=== PATIENT | female | born 1995 | race African-American/Black ===

== ENCOUNTER 2023-04-05 04:27 | Inpatient (IN) | payer SELFPAY ==
[2023-04-05] VITALS (7 sets, daily range): BP systolic 138–155; BP diastolic 88–115; PULSE 82–89; RESP 14–18; TEMP 36.8–37.2; O2SAT 97–99
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
--- NOTE | 2023-04-05 05:27 | ED_ITS ---
HPI - Altered Mental Status 2 General: Chief Complaint: Altered Mental Status Stated Complaint: AMS Time Seen by Provider: 04/05/23 04:44 History of Present Illness: 28-year-old female presents emergency de partment after being found wandering around by her car. Patient does appear to be acutely confused. She is unable to provide any substantial and significant history regarding how she ended up in [facility] or in the emergency department. She has a very flat blunted affect. The patient did have a cell phone with her and we were able to reach a stepfather that states she has been having significant mental breaks where she becomes acutely removed from her surroundings. He states that she has had significant increased life stressors but is unable to expand on that. He states she is from the [facility] and has had significant difficulties in her life and is attempted to start her life over several times. He states that she has had significant increase in mental health complications but is unable to expand. Patient denies pain. She repeatedly states interesting, that it is very interesting . Review of Systems 2 General: Reports: ROS unobtainable due to mental status Physical Exam 2 Narrative: Constitutional: the patient appears well nourished and with normal development. Vital signs reviewed as documented. No acute distress but does appear to be acutely confused. HENMT: Normocephalic, atraumatic. Extermal ears with normal appearance without drainage. Nose without drainage, normal appearance. Mucus membranes moist. Neck is supple, No jugular venous distension, trachea is midline, no appreciable carotid bruits. No lymphadenopathy. No meningeal signs. Flexion, extension and lateral rotation is without pain. Eyes: Pupils are equal, round, reactive to light and accommodation. No scleral icterus. Extra-ocular movement are intact. Thorax is symmetrical and with equal rise and fall with respirations. Resp: Lungs are clear to auscultation. No wheezes, rales, crackles or ronchi at present. Cardio: Regular rate and rhythm. Positive S1, S2. No appreciable murmurs, rubs or gallops. GI: Abdominal exam reveals normal bowel sounds to all quadrants. No organomegaly. No obvious palpable masses noted. No hepatomegally appreciated. Soft, nontender to palpation. Extremity: Extremities are non-edematous and both femoral and pedal pulses are 2+ and equal bilaterally. Moves all extremities well, sensation in all extremities. Neuro: Alert and oriented x1 , person, she does not appear to have any indication regarding place, time and situation. Cranial nerves II through XII are grossly intact, there is no focal neurological deficits that I can appreciate at present. Motor strength in the upper and lower extremities are equal and bilateral 5/5. Psych: Blunted, flat, impaired normal thought process, Skin: No lesions, rashes. No gross abnormalities noted. Back: Symmetrical, no obvious deformity, No CVA tenderness Course 2 Vital Signs: Vital signs: Vital Signs Temperature 99 F 04/05/23 14:00 Pulse Rate 82 04/05/23 14:00 Respiratory Rate 14 04/05/23 14:00 Blood Pressure 145/94 04/05/23 14:00 Pulse Oximetry 97 04/05/23 14:00 Oxygen Delivery Me thod Room Air 04/05/23 08:00 MDM - Altered Mental Status Medical Decision Making Physical exam completed and documented I will obtain psychiatric medical clearance labs and admit the patient to inpatient psychiatry for acute psychosis. Lab Data 04/05/23 05:36 04/05/23 05:36 Laboratory Results WBC 7.28 10^3/uL (3.29-11.43) 04/05/23 05:36 RBC 4.64 10^6/uL (3.85-5.65) 04/05/23 05:36 Hgb 13.40 g/dL (11.27-16.99) 04/05/23 05:36 Hct 40.2 % (36-47) 04/05/23 05:36 MCV 86.6 fl (85-98) 04/05/23 05:36 MCH 28.9 pg (27-33) 04/05/23 05:36 MCHC 33.3 g/dL (30-55) 04/05/23 05:36 RDW 16.9 % (12.1-15.1) H 04/05/23 05:36 Plt Count 304 10^3/cmm (157-399) 04/05/23 05:36 MPV 9.4 fL (7.4-10.4) 04/05/23 05:36 Neut % (Auto) 68.9 % 04/05/23 05:36 Lymph % (Auto) 23.4 % 04/05/23 05:36 [place] % (Auto) 6.2 % 04/05/23 05:36 Eos % (Auto) 0.4 % 04/05/23 05:36 Baso % (Auto) 0.8 % 04/05/23 05:36 Neut # (Auto) 5.02 10^3/uL (1.8-7.7) 04/05/23 05:36 Lymph # (Auto) 1.7 10^3/uL (0.8-4.8) 04/05/23 05:36 [place]land # (Auto) 0.5 10^3/uL (0.2-0.9) 04/05/23 05:36 Eos # (Auto) 0.0 10^3/uL (0.0-0.8) 04/05/23 05:36 Baso # (Auto) 0.1 10^3/uL (0.0-0.1) 04/05/23 05:36 Nucleated RBC % (auto) 0 % 04/05/23 05:36 Nucleated RBCs # 0.0 /100WBC 04/05/23 05:36 Sodium 143 mmol/L (136-145) 04/05/23 05:36 Potassium 3.7 mmol/L (3.5-5.1) 04/05/23 05:36 Chloride 103 mmol/L (98-107) 04/05/23 05:36 Carbon Dioxide 27 mmol/L (22-29) 04/05/23 05:36 Anion Gap 16.7 (5-19) 04/05/23 05:36 BUN 14 mg/dL (6-20) 04/05/23 05:36 Creatinine 0.7 mg/dL (0.5-0.9) 04/05/23 05:36 GFR Calculation 120.6 mL/min (90-130) 04/05/23 05:36 Glucose 108 mg/dL (65-115) 04/05/23 05:36 Calculated Osmolality 297 mOsm/kg (285-295) H 04/05/23 05:36 Calcium 9.9 mg/dL (8.5-10.5) 04/05/23 05:36 Total Bilirubin 0.5 mg/dL (0.15-1.2) 04/05/23 05:36 AST 21 U/L (0-32) 04/05/23 05:36 ALT 10 U/L (0-33) 04/05/23 05:36 Alkaline Phosphatase 75 U/L (35-105) 04/05/23 05:36 Total Protein 8.3 g/dL (6.6-8.7) 04/05/23 05:36 Albumin 4.6 g/dL (3.5-5.2) 04/05/23 05:36 Globulin 3.7 g/dL (1.3-4.6) 04/05/23 05:36 TSH 3.37 uIU/mL (0.27-4.20) 04/05/23 05:36 HCG, Qual Negative (Negative) 04/05/23 05:36 Urine Color Yellow (Yellow) 04/05/23 05:36 Urine Appearance Sl hazy (CLEAR) A 04/05/23 05:36 Urine pH 5 (5-7) 04/05/23 05:36 Ur Specific [place] 1.020 (1.005-1.030) 04/05/23 05:36 Urine Protein Neg (Negative) 04/05/23 05:36 Urine Glucose (UA) Norm (Normal) 04/05/23 05:36 Urine Ketones 1+ (Negative) H 04/05/23 05:36 Urine Blood Neg (Negative) 04/05/23 05:36 Urine Nitrate Negative (Negative) 04/05/23 05:36 Urine Bilirubin Neg (Negative) 04/05/23 05:36 Urine Urobilinogen Neg mg/dL (Negative) 04/05/23 05:36 Ur Leukocyte Esterase Trace (Negative) H 04/05/23 05:36 Urine RBC None /hpf (0-2) 04/05/23 05:36 Urine WBC 0-4 /hpf (0-5) H 04/05/23 05:36 Ur Squamous Epith Cells 0-4 /hpf (0-5) H 04/05/23 05:36 Amorphous Sediment Not Reportable 04/05/23 05:36 Urine Bacteria 1+ /hpf (NONE) H 04/05/23 05:36 Urine Mucus 2+ /hpf 04/05/23 05:36 Salicylates < 0.3 mg/dL (3-10) L 04/05/23 05:36 Urine Opiates Screen Negative ng/mL (Negative) 04/05/23 05:36 Acetaminophen < 5.0 ug/mL (10-30) L 04/05/23 05:36 Ur Barbiturates Screen Negative ng/mL (Negative) 04/05/23 05:36 Ur Phencyclidine Scrn Negative ng/mL (Negative) 04/05/23 05:36 Ur Amphetamines Screen Negative ng/mL (Negative) 04/05/23 05:36 U Benzodiazepines Scrn Negative ng/mL (Negative) 04/05/23 05:36 Urine Cocaine Screen Negative ng/mL (Negative) 04/05/23 05:36 U Marijuana (THC) Screen Negative ng/mL (Negative) 04/05/23 05:36 Ethyl Alcohol < 10 mg/dL (0-10) 04/05/23 05:36 No radiology studies performed this visit Discharge Plan Discharge Patient Disposition: Admitted As Inpatient Admit Provider: Niranjan Silva Clinical Impression: Acute psychosis Altered mental status Qualifiers: Altered mental status type: disorientation Qualified Code(s): R41.0 - Disorientation, unspecified Condition: Stable Coding Level of Care Code ED Flight Engineer Manager for Shanda Chi
[2023-04-05 05:41] LABS: Basophils # 0.1 10^3/uL (0.0-0.1); Basophils % 0.8 %; Eosinophils % 0.4 %; Hematocrit 40.2 % (36-47); Lymphocytes # 1.7 10^3/uL (0.8-4.8); Lymphocytes % 23.4 %; Mean Corpuscular HGB Conc 33.3 g/dL (30-55); Mean Corpuscular Hemoglobin 28.9 pg (27-33); Mean Corpuscular Volume 86.6 fl (85-98); Mean Platelet Volume 9.4 fL (7.4-10.4); Monocytes # 0.5 10^3/uL (0.2-0.9); Monocytes % 6.2 %; Neutrophils # 5.02 10^3/uL (1.8-7.7); Neutrophils % 68.9 %; Nucleated Red Blood Cells % 0 %; Platelet Count 304 10^3/cmm (157-399); Red Blood Count 4.64 10^6/uL (3.85-5.65); Red Cell Distribution Width 16.9 % (12.1-15.1); White Blood Count 7.28 10^3/uL (3.29-11.43)
[2023-04-05 05:42] LABS: HCG Qualitative Urine. Negative (Negative)
[2023-04-05 05:48] LABS: Add Urine Microscopic? YES; Bilirubin Urine Neg (Negative); Blood Urine Neg (Negative); Glucose Urine UA Norm (Normal); Ketones Urine 1+ (Negative); Leukocyte Esterase Urine Trace (Negative); Nitrate Urine Negative (Negative); Protein Urine Neg (Negative); Urine Appearance SL Hazy (CLEAR); Urine Color Yellow (Yellow); Urobilinogen Urine Neg (Negative); pH Urine 5 (5-7)
[2023-04-05 05:49] LABS: Add Urine Culture? No; Bacteria Urine 1+ /hpf; Mucus Urine 2+ /hpf; Squamous Epithelial Cell Urine 0-4 /hpf (0-5); WBC Urine 0-4 /hpf (0-5)
[2023-04-05 05:51] LABS: Amphetamines Screen Urine Negative (Negative); Barbiturates Screen Urine Negative (Negative); Benzodiazepines Screen Urine Negative (Negative); Cocaine Screen Urine Negative (Negative); Opiate Screen Urine Negative (Negative); PCP Screen Urine Negative (Negative); THC Screen Urine Negative (Negative)
[2023-04-05 06:06] LABS: Alanine Aminotransferase 10 U/L (0-33); Albumin Level 4.6 g/dL (3.5-5.2); Alkaline Phosphatase 75 U/L (35-105); Anion Gap 16.7 (5-19); Aspartate Amino Transferase 21 U/L (0-32); Blood Urea Nitrogen 14 mg/dL (6-20); Calcium 9.9 mg/dL (8.5-10.5); Carbon Dioxide 27 mmol/L (22-29); Chloride 103 mmol/L (98-107); Globulin 3.7 g/dL (1.3-4.6); Glomerular Filtration Rate 120.6 mL/min (90-130); Glucose 108 mg/dL (65-115); Osmolality Calculated 297 mOsm/kg (285-295); Potassium 3.7 mmol/L (3.5-5.1); Sodium 143 mmol/L (136-145); Thyroid Stimulating Hormone 3.37 uIU/mL (0.27-4.20); Total Bilirubin 0.5 mg/dL (0.15-1.2); Total Protein 8.3 g/dL (6.6-8.7)
[2023-04-05 06:08] LABS: Acetaminophen < 5.0 ug/mL (10-30); Alcohol Level < 10 mg/dL (0-10); Salicylate < 0.3 mg/dL (3-10)
--- NOTE | 2023-04-05 06:20 | PC.NURSE ---
attempted to call report at 0615. This nurse was told that it's going to be a little while. We just got an admit This nurse did inform her that there was a lot of information to pass on and that the report would be better if given prior to shift change. They are supposed to be calling back within the next 30mins or so.
--- NOTE | 2023-04-05 11:24 | PC.NURSE ---
Patient arrived to NPU appearing very confused. Upon attempting patient assessment, she was unable to undress or redress herself without the aid of this RN and a 3RD MATE. She could tell me her first name, but was unable to recall her last name. She also believes she is in [place], [place]. When asked if she remembered how she got to the hospital or why she ran her hands up and down the sides of the bed and stated, whateva...that's so weird. Patient was unable to answer any other questions logically as she just kept saying, I don't know, laughing, and mumbling incomprehensible sounds and words to herself. She was cooperative with her physical assessment and no concerns were noted.
--- NOTE | 2023-04-05 13:20 | PC.NURSE ---
Patient's 96 hour rights were reviewed at 1313 at patient's bedside. She voiced that she had no questions at this time. Patient was advised to ask staff if she were to have any questions at any time. Patient copy left at bedside.
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
[2023-04-05] MEDS: haloperidol 5 mg Tablet PO (21:36)
[2023-04-05] MEDS: trazodone 50 mg Tablet PO (21:36)
--- NOTE | 2023-04-06 03:04 | PC.NURSE ---
Patient behavior Patient came to nurses desk mumbling. She denied needing anything. Mumbled a few more times and went back to her room
[2023-04-06] MEDS: hyDROXYzine 25 mg Capsule 50 MG PO (03:46)
[2023-04-06 06:00] VITALS: BP 110/72; PULSE 80; RESP 16; O2SAT 99
[2023-04-06 14:00] VITALS: BP 130/75; PULSE 71; RESP 13; TEMP 36.9; O2SAT 98
--- NOTE | 2023-04-06 16:26 | W.PM.NPUPNS ---
Subjective NPU Subjective: Patient presented today continuing to report that she is okay. Staff reports however that she is confused still, disorganized and isolative. This was noted on direct observation. She continues to be resistant to medication. She reports that she wants to go back to [place] but cannot give any clarity about where that would be in [place]. Mental Status Exam MSE Comments: This is an obese -Marshallese female, in hospital scrubs, with poor grooming and adequate eye contact. Appears to have a wig on or matted hair. No abnormal movements, except for psychomotor retardation. Cooperative with exam in mild distress. Speech was limited, and normal rate and decreased volume, with occasional pauses from possible thought blocking. Mood described as good; affect distracted. Thought process, organized. Thought content: patient denied any suicidal or homicidal ideation; there were no delusions reported but paranoia noted; patient denied any auditory or visual hallucinations. Attention, concentration, and memory appeared intact, but none were formally tested. Alert and oriented times three. Insight and judgment appear impaired. Impulse control is impaired. Vitals/I&O/Wt Last Vital Signs Temp 99 F 04/05/23 14:00 Pulse 80 04/06/23 06:00 Resp 16 04/06/23 06:00 BP 110/72 04/06/23 06:00 Pulse Ox 99 04/06/23 06:00 O2 Del Method Room Air 04/06/23 06:00 Data NPU 04/05/23 05:36 04/05/23 05:36 Involuntary Hold Information 96 Hour Hold: 96 Hour Involuntary Admission: No Attestations NPU Medical Necessity Statement*: Inpatient hospitalization is medically necessary and the clinically appropriate intervention, at this time. We will monitor medications and make changes as indicated. Likely length of stay is three to five days. Coding Level of Care Code Acute Code for [facility] F[facility]
[2023-04-06 20:35] VITALS: BP 132/74; PULSE 98; RESP 13; TEMP 36.9; O2SAT 95
--- NOTE | 2023-04-06 20:58 | PC.NURSE ---
PT DENIES SI/HI AND AVH AT THIS TIME. PT IS NOTED TO HAVE A FLAT AFFECT AND WITHDRAWN. PT DECLINES ANY PRN'S. PT DID GO OUT TO DAY ROOM AND WATCH TV. ALL QUESTIONS ANSWERED AND SUPPORT VOICED. PT DENIES PAIN.
[2023-04-07 06:00] VITALS: RESP 16
[2023-04-07 14:00] VITALS: BP 110/74; PULSE 79; RESP 20; TEMP 36.8; O2SAT 99
--- NOTE | 2023-04-07 17:22 | PC.NURSE ---
SANE procedure set to be performed on patient on Tuesday at 0830. No showering by patient
--- NOTE | 2023-04-07 17:59 | P.NPUPN_ITS ---
Subjective NPU 2 Subjective: Patient presented today reporting that she is feeling better. She was much less isolative per staff reports and direct observation. She continues to be resistant to medication but is open to working with the social work team on aftercare and where she will go next. Mental Status Exam 2 MSE Comments: This is an obese -Montenegrin female, in hospital scrubs, with poor grooming and adequate eye contact. Appears to have a wig on or matted hair. No abnormal movements, except for psychomotor retardation. Cooperative with exam in mild distress. Speech was more spontaneous, and more normal rate and volume, with occasional pauses from possible thought blocking. Mood described as good; affect more euthymic. Thought process, organized. Thought content: patient denied any suicidal or homicidal ideation; there were no delusions reported but paranoia noted; patient denied any auditory or visual hallucinations. Attention, concentration, and memory appeared intact, but none were formally tested. Alert and oriented times three. Insight and judgment appear impaired. Impulse control is impaired. Vitals/I&O/Wt Last Vital Signs Temp 98.5 F 04/06/23 20:35 Pulse 98 04/06/23 20:35 Resp 16 04/07/23 06:00 BP 132/74 04/06/23 20:35 Pulse Ox 95 04/06/23 20:35 O2 Del Method Room Air 04/06/23 20:35 Data NPU 04/05/23 05:36 04/05/23 05:36 A&P Assessment and plan (1) Acute psychosis: (2) Altered mental status: Qualifiers: Altered mental status type: disorientation Qualified Code(s): R41.0 - Disorientation, unspecified Plan This is a 28-year-old, female, who presents with limited historical information and without real clarity about her current symptoms or situation, but with indications of thought blocking and internal stimuli, with a willingness to start medication. 1.? Start medication if she will agree. 2.? Encourage individual, group, and milieu therapy. 3.? Continue q-15-minute checks for safety. Involuntary Hold Information 2 96 Hour Hold: 96 Hour Involuntary Admission: No Attestations NPU 2 Medical Necessity Statement*: Inpatient hospitalization is medically necessary and the clinically appropriate intervention, at this time. We will monitor medications and make changes as indicated. Likely length of stay is 2-4 days. Coding Level of Care Code Acute Code for [facility] Fwd Diagnoses Acute psychosis F23 Altered mental status R41.0 Altered mental status type: disorientation
[2023-04-07 20:22] VITALS: BP 101/63; PULSE 86; RESP 17; O2SAT 96
--- NOTE | 2023-04-07 20:46 | PC.NURSE ---
IN BED RESTING AROUSES TO VOICE. PT DENIES PAIN. DENIES SI/HI AND AVH AT THIS TIME. RATES ANXIETY 3/10 AND DEPRESSION 0/10. PT DECLINES ANY PRN MEDICATIONS FOR ANXIETY OR SLEEP. PT WAS EDUCATED THAT SHE CAN NOT SHOWER UNTIL AFTER HER TEST IN THE MORNING. PT VERBALIZED UNDERSTANDING. ALL QUESTIONS ANSWERED AND SUPPORT VOICED.
[2023-04-08 06:00] VITALS: RESP 15
--- NOTE | 2023-04-08 06:26 | PC.NURSE ---
PT HAS SLEPT THROUGH OUT THE NIGHT SLEEPING APPROXIMATELY 9 HOURS TOTAL FOR THE NIGHT. NO PRNS GIVEN.
--- NOTE | 2023-04-08 09:30 | PC.NURSE ---
Patient off unit at approximately 0905 with security and insulation power unit tender to ER via wheelchair. Patient calm
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
[2023-04-08 14:00] VITALS: BP 109/65; PULSE 82; RESP 16; TEMP 36.9; O2SAT 97
[2023-04-08] MEDS: azithromycin 250 mg Tablet 1000 MG PO (14:16)
[2023-04-08] MEDS: metroNIDAZOLE 500 MG Tablet 2000 MG PO (14:17)
[2023-04-08] MEDS: ondansetron 4 MG Tablet PO (14:18)
[2023-04-08] MEDS: emtricitabine/tenofovir 200 mg-300 mg TABLET 1 TAB PO (15:22)
[2023-04-08] MEDS: tetanus-dipt-pertussis 0.5 mL SDV IM (18:20)
[2023-04-08 21:04] VITALS: BP 107/72; PULSE 77; RESP 18; TEMP 36.9; O2SAT 99
[2023-04-09 06:00] VITALS: BP 126/80; PULSE 62; RESP 16; O2SAT 99
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
[2023-04-09 14:00] VITALS: BP 114/73; PULSE 96; RESP 20; TEMP 37.2; O2SAT 97
[2023-04-09 22:00] VITALS: BP 107/70; PULSE 83; RESP 17; TEMP 37; O2SAT 98
[2023-04-10 06:00] VITALS: BP 106/64; PULSE 74; RESP 16; O2SAT 100
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
[2023-04-10 14:00] VITALS: BP 108/64; PULSE 77; RESP 18; TEMP 36.9; O2SAT 99
[2023-04-10 19:45] VITALS: BP 112/74; PULSE 69; RESP 16; O2SAT 98
[2023-04-11 06:00] VITALS: RESP 16
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
[2023-04-11 13:07] VITALS: RESP 16
== END 2023-04-11 14:52 | disposition home or self-care (01) | DRG 885 ==
LOC: ER 05:53 → NP 06:00
PROVIDERS: Admitting Provider Psychiatry & Neurology Psychiatry; Emergency Provider Internal Medicine; Visit Provider Psychiatry & Neurology Psychiatry
DX: F23 Brief psychotic disorder (principal); Z59.02 Unsheltered homelessness; F43.0 Acute stress reaction; R41.0 Disorientation, unspecified
CPT/HCPCS: 80053; 80306; 80307; 81001; 81025; 84443; 85025; 90471; 90715; 96372; 97150; 97165; 99285; J0696; Q0144; Q0162